=== PATIENT | female | born 1945 | race Caucasian/White ===

== ENCOUNTER 2017-09-23 18:10 | Emergency (ER) | payer SELFPAY ==
[2017-09-23 20:39] LABS: ALBUMIN 3.4 g/dL (3.4-5.0); ALKALINE PHOSPHATASE 61 U/L (46-116); ALT (SGPT) 19 U/L (10-68); BILIRUBIN - TOTAL 0.25 mg/dL (0.2-1.3); CALC OSMOLALITY 279 mosm/kg (275-300); CHLORIDE - SERUM 101 mmol/L (98-107); CREATININE - SERUM 0.8 mg/dL (0.6-1.3); GLUCOSE 109 mg/dL (74-106); POTASSIUM - SERUM 3.6 mmol/L (3.5-5.1); PROTEIN - SERUM 6.4 g/dL (6.4-8.2); SODIUM 139 mmol/L (136-145); UREA NITROGEN 15 mg/dL (7-18); eGFR NON AFRICAN AMERICAN 75 mL/min (90-120)
== END 2017-09-23 21:15 | disposition home or self-care (01) ==
LOC: D.ER 18:10
PROVIDERS: Nurse Practitioner Family
DX: I10 Essential (primary) hypertension (principal); K21.9 Gastro-esophageal reflux disease without esophagitis

== ENCOUNTER 2018-08-27 21:42 | Inpatient (IN) | payer OTHER, MEDICARE ==
[~2018-08-27] VITALS: Ht 157.5 cm; Wt 62.2 kg
--- NOTE | ~2018-08-27 | HEMODYNAMI ---
PATIENT:FOREST CRAWFORD MEDICAL RECORD: [id number] : 49 LOCATION:[facility] ADMISSION DATE: 08/27/18 Generatedon:08/27/201823:53 Patient name: FOREST CRAWFORD Patient #: [id number] SSN: : 1945 Date of study: 08/27/2018 Page: Of Hemodynamic Procedure Report Patient Data Patient Demographics Procedure consent was obtained First Name: FOREST Gender: Female Last Name: TY : 1945 Patient #: [id number] Age: 73 year(s) Race: Unknown Additional ID: [id number] Contact details Address: [address] [place] [address] State: [place] City: [place] Zip code: [address] Past Medical History Allergies Allergen Reaction Date Comments Reported Other allergy 08/27/2018 SULFA, AMPICILLIN Admission Admission Data Admission Date: 08/27/2018 Admission Time: 21:42 Lab Results Lab Result Date: 08/27/2018 Lab Result Time: 0:00 CBC Name Units Result Min Max Hemoglobin g/dl 12.2 *-(----)-- 13.5 17.5 Procedure Procedure Types Cath Procedure Diagnostic Procedure Sedation Charges Moderate Sedation up to 15 minutes Moderate Sedation up to 30 minutes PCI Procedure AMI/SVG/LUMP INSPECTOR PTCA or Stent AMI-BMS/NIRAV Initial Procedure Description Procedure Date Procedure Date: 08/27/2018 Procedure Start Time: 23:04 Procedure End Time: 23:52 Procedure Staff Name Function Josh Pichardo MD Performing Physician Anne Marie Fulelr RT Monitor Amy Batres RT Scrub Vick Vieira RN Nurse Procedure Data Cath Procedure Fluoroscopy Diagnostic fluoroscopy Total fluoroscopy Time: time: 10.9 min 10.9 min Diagnostic fluoroscopy Total fluoroscopy dose: dose: 1389 mGy 1389 mGy Contrast Material Contrast Material Type Amount (ml) Isovue 300 185 Entry Location Entry Primary Successful Side Size Upsize Upsize Entry Closure Succes sful Closure Location (Fr) 1 (Fr) 2 (Fr) Remarks Device Remarks Femoral Right 6 Fr Exoseal artery Short Estimated blood loss: 10 ml Diagnostic catheters Device Type Used For End Catheter Placement MULTIPACK JL 4.0 5Fr Procedure catheter MULTIPACK 3DRC 5Fr Procedure catheter MULTIPACK Pigtail 5 Fr Procedure catheter DIAGNOSTIC AL1 5Fr Procedure catheter ([id number]) Procedure Complications No complications Procedure Medications Medication Administration Route Dosage Oxygen etCO2 Nasal cannula 2 l/min Heparin Flush Bag added to field 2 bags (1000units/500ml NS) 0.9% NaCl I.V. 100 ml/hr Fentanyl I.V. 50 mcg Versed I.V. 1 mg Heparin Bolus I.V. 6000 units Fentanyl I.V. 50 mcg Versed I.V. 1 mg Nitroglycerin IC/IA I.C. 100 mcg Cardene I.C. 300 mcg Integrilin (Bolus I.V. 5 ml 2mg/ml) Cardene I.C. 300 mcg Nitroglycerin IC/IA I.C. 100 mcg Integrilin (Bolus wasted 5 ml 2mg/ml) Integrilin Drip I.V. drip 9.1 ml/hr (75mg/100ml) Hemodynamics Rest HGB: 12.2 (g/dl) Heart Rate: 68 (bpm) Pressure Samples Time Site Value (mmHg) Purpose Heart Use Rate(bpm) 23:40 LV 112/12,29 Snapshot 78 23:40 LV 114/11,30 Snapshot 79 23:41 AO 119/72(94) Pullback 78 23:41 LV 119/13,32 Pullback 78 Gradients Valve Time Site 1 Site 2 Mean SEP/DFP Peak To Heart Use (mmHg) (sec/min) Peak Rate (mmHg) (bpm) Aortic 23:41 LV AO 8 16 0 78 119/13,32 119/72(94) Calculations Valve P-P Mean Valve Index Valve Source Name Gradient Area Flow (cm2) Aortic 0 8 0 8 Snapshots Pre Cath Intra NCS Post Cath Vital Signs Time Heart Resp SPO2 etCO2 NIBP (mmHg) Rhythm Pain Sedation Rate (ipm) (%) (mmHg) Status Level (bpm) 23:00:39 63 19 96 0 147/102(137) NSR 0 (11) 10(A) , No pain 23:04:55 64 18 94 0 142/88(114) NSR 0 (11) 10(A) , No pain 23:09:07 70 17 96 0 149/100(132) NSR 0 (11) 9(A) , No pain 23:13:21 69 14 96 0 141/89(112) NSR 0 (11) 9(A) , No pain 23:17:29 81 11 95 0 127/85(100) NSR 0 (11) 9(A) , No pain 23:21:35 74 14 96 0 145/100(126) NSR 0 (11) 9(A) , No pain 23:25:47 73 15 97 0 139/94(117) NSR 0 (11) 9(A) , No pain 23:29:59 76 14 96 0 131/85(107) NSR 0 (11) 9(A) , No pain 23:34:11 78 15 96 0 123/77(101) NSR 0 (11) 9(A) , No pain 23:38:21 79 15 98 0 117/74(96) NSR 0 (11) 9(A) , No pain 23:42:26 79 17 96 0 122/82(100) NSR 0 (11) 9(A) , No pain 23:46:34 75 17 96 0 130/83(103) NSR 0 (11) 9(A) , No pain 23:50:46 75 17 95 0 130/82(107) NSR 0 (11) 9(A) , No pain Medications Time Medication Route Dose Verified Delivered Reason Notes Effectiveness by by 23:00:52 Oxygen etCO2 2 Josh Vick Per physician Nasal l/min Marino Vieira RN cannula 23:01:00 Heparin Flush added 2 Josh Vick used for Bag to bags Marino Vieira RN procedure (1000units/500ml field NS) 23:01:07 0.9% NaCl I.V. 100 Josh Vick Per physician ml/hr Marino Vieira RN 23:04:18 Fentanyl I.V. 50 Josh Vick for sedation mcg Marino Vieira RN 23:04:25 Versed I.V. 1 mg Josh Vick for sedation Marino Vieira RN 23:12:19 Heparin Bolus I.V. 6000 Josh Vick for units Marino Vieira RN anticoagulation 23:12:25 Fentanyl I.V. 50 Josh Vick for sedation mcg Pichardo MD Vieira RN 23:12:30 Versed I.V. 1 mg Josh Vick for sedation Marino Vieira RN 23:22:57 Nitroglycerin I.C. 100 Josh Josh for IC/IA mcg Marino Pichardo MD vasodilation 23:26:29 Cardene I.C. 300 Josh Josh for mcg Marino Pichardo MD vasodilation 23:28:40 Integrilin I.V. 5 ml Josh Vick for (Bolus 2mg/ml) Marino Veiira RN anticoagulation 23:29:50 Cardene I.C. 300 Josh Vick for mcg Marino Vieira RN vasodilation 23:37:27 Nitroglycerin I.C. 100 Josh Josh for IC/IA mcg Marino Pichardo MD vasodilation 23:49:08 Integrilin wasted 5 ml Josh Vick for (Bolus 2mg/ml) Marino Vieira RN anticoagulation 23:49:29 Integrilin Drip I.V. 9.1 Josh Vick for (75mg/100ml) drip ml/hr Marino Vieira RN anticoagulation Procedure Log Time Note 22:50:39 Vick Vieira RN sent for patient. Start room use. 22:50:40 Time tracking: Call back (After hours or weekends) 22:50:48 Plan of Care:Hemodynamics will remain stable., Cardiac rhythm will remain stable., Comfort level will be maintained., Respiratory function will remain adequate., Patient/ family verbilizes understanding of procedure., Procedure tolerated without complication., Recovers from procedure without complications.. 22:50:52 H&P Date Dictated: 08/27/2018 ER History on chart.. 22:51:18 Patient allergic to Other allergySULFA, AMPICILLIN 22:51:37 Lab Result : Hemoglobin 12.2 g/dl 22:59:36 Vital chart was started 23:00:52 Oxygen 2 l/min etCO2 Nasal cannula was administered by Vick Vieira RN; Per physician; 23:01:00 Heparin Flush Bag (1000units/500ml NS) 2 bags added to field was administered by Vick Vieira RN; used for procedure; 23:01:07 0.9% NaCl 100 ml/hr I.V. was administered by Vick Vieira RN; Per physician; 23:01:09 Lab results completed and on chart. 23:01:28 Patient received from ED to CCL 1 Alert and oriented. Tansferred to table in Supine position. 23:01:29 Warm blankets applied, and todd hugger turned on for patient comfort. 23:01:31 Correct patient and procedure confirmed by team. 23:01:34 Signed procedure consent form obtained from patient. 23:01:35 ECG and BP/O2 sat monitors applied to patient. 23:01:37 Baseline sample Acquired. 23:01:59 Baseline sample Acquired. 23:02:02 Rhythm: w/ ST elevation 23:02:09 Rhythm: sinus rhythm , w/ ST elevation 23:02:11 Full Disclosure recording started 23:02:17 Family unavailable. 23:02:22 Patient NPO since Midnight. 23:02:26 Is the patient allergic to Iodine/contrast media? No. 23:02:28 Was the patient premedicated? Yes 23:02:29 Is patient on blood thinner?No 23:02:31 Patient diabetic? No. 23:02:41 Snore? Yes 23:02:45 Sleep apnea? No 23:02:51 Patient pain scale 0/10 ?. 23:02:57 IV patent on arrival in left forearm with 0.9% NaCl at KVO. 23:03:06 Right groin area was prepped with chlora-prep and draped in sterile fashion 23:03:07 Alarms reviewed by R. N. 23:03:08 Sharps counted by scrub and verified by R.N. 23:03:09 Physician paged 23:03:10 Physician arrived 23:03:10 --------ALL STOP TIME OUT------ 23:03:11 Final Timeout: patient, procedure, and site verified with staff and physician. All members of the team are in agreement. 23:03:13 Right groin site verified by team. 23:03:17 Physical assessment completed. ASA score P 2 - A patient with mild systemic disease as per Josh Pichardo MD. 23:03:22 Sedation plan: IV Moderate Sedation Medication:Versed, Fentanyl 23:03:26 Use device set Femoral Dx 23:04:04 ACIST Syringe (43685) opened to sterile field. 23:04:04 Bag Decanter (2002S) opened to sterile field. 23:04:05 Medline Cath Pack ([id number]) opened to sterile field. 23:04:05 DIAGNOSTIC WIRE .035 260cm J wire (257961) opened to sterile field. 23:04:10 ACIST Hand Control (35681) opened to sterile field. 23:04:10 ACIST Manifold (51264) opened to sterile field. 23:04:11 DIAGNOSTIC Multipack 5Fr catheter set (PX1031) opened to sterile field. 23:04:11 Tegaderm 4 x 4 (1626W) opened to sterile field. 23:04:12 PERCUTANEOUS ENTRY 19GA needle opened to sterile field. 23:04:18 Fentanyl 50 mcg I.V. was administered by Vick Vieira RN; for sedation; 23:04:25 Versed 1 mg I.V. was administered by Vick Vieira RN; for sedation; 23:04:25 SHEATH Prelude 6Fr 0.035 (TDW-4U-31-035) opened to sterile field. 23:04:26 TUBING High Pressure Extension Tubing (Marino) (MD4591S) opened to sterile field. 23:04:27 INFLATOR Merit BasixCompak (KL8793) opened to sterile field. 23:04:27 BMW 300cm [place] 2 J wire ([id number]) opened to sterile field. 23:04:31 Procedure started. 23:04:47 Local anesthetic to right femoral artery with Lidocaine 2% by Josh Pichardo MD.INITIAL ACCESS ONLY 23:04:57 A 6 Fr Short sheath was inserted into the Right Femoral artery 23:05:01 j wire advanced. 23:05:12 A MULTIPACK JL 4.0 5Fr catheter was advanced over the wire and used for Procedure. 23:05:23 Zero performed for pressure channel P1 23:05:27 Zero performed for pressure channel P1 23:05:30 Zero performed for pressure channel P1 23:05:33 Zero performed for pressure channel P1 23:05:44 Zero performed for pressure channel P1 23:06:58 LCA angiography performed. 23:09:25 Catheter removed. 23:09:40 A MULTIPACK 3DRC 5Fr catheter was advanced over the wire and used for Procedure. 23:09:47 RCA angiography performed. 23:09:53 Catheter removed. 23:10:05 GUIDE 6FR XBLAD 3.5 catheter ([id number]) opened to sterile field. 23:10:12 Proceeding to intervention. 23:10:24 6 Fr xblad 3.5 guide catheter was inserted over the wire 23:12:09 bmw wire advanced. 23:12:19 Heparin Bolus 6000 units I.V. was administered by Vick Vieira RN; for anticoagulation; 23:12:25 Fentanyl 50 mcg I.V. was administered by Vick Vieira RN; for sedation; 23:12:30 Versed 1 mg I.V. was administered by Vick Vieira RN; for sedation; 23:13:56 Wire advanced across lesion. 23:15:23 Inflate balloon Inflation number: 1 A EMERGE OTW 2.5 x 15 balloon ([id number]) was prepped and advanced across the Prox LAD, then inflated to 14 JÚNIOR for 0:13 (min:sec). 23:15:50 Inflation number: 2 The EMERGE OTW 2.5 x 15 balloon ([id number]) was reinflated across the Prox LAD, to 6 JÚNIOR for 0:10 (min:sec). 23:18:43 Balloon removed over the wire. 23:22:18 Place stent Inflation Number: 3 A DEION OTW 2.75 x 22 stent ([id number]) was prepped and advanced across the Prox LAD. The stent was deployed at 16 JÚNIOR for 0:21 (min:sec). 23:22:57 Nitroglycerin IC/IA 100 mcg I.C. was administered by Josh Pichardo MD; for vasodilation; 23:26:29 Cardene 300 mcg I.C. was administered by Josh Pichardo MD; for vasodilation; 23:28:40 Integrilin (Bolus 2mg/ml) 5 ml I.V. was administered by Vick Vieira RN; for anticoagulation; 23:29:50 Cardene 300 mcg I.C. was administered by Vick Vieira RN; for vasodilation; 23:32:42 Stent catheter was removed intact over wire. 23:35:38 Place stent Inflation Number: 4 A DEION OTW 3.0 x 12 stent ([id number]) was prepped and advanced across the Prox LAD. The stent was deployed at 16 JÚNIOR for 0:16 (min:sec). 23:36:11 Inflation number: 5 The stent balloon was then re-inflated across the Prox LAD to 14 JÚNIOR for 0:14 (min:sec). 23:37:27 Nitroglycerin IC/IA 100 mcg I.C. was administered by Josh Pichardo MD; for vasodilation; 23:39:15 Wire removed. 23:39:17 Guide catheter removed. 23:39:58 A MULTIPACK Pigtail 5 Fr catheter was advanced over the wire and used for Procedure. 23:41:15 EF : 40 % 23:41:40 Catheter removed. 23:41:52 A DIAGNOSTIC AL1 5Fr catheter ([id number]) was advanced over the wire and used for Procedure. 23:41:58 RCA angiography performed. 23:43:42 Catheter removed. 23:44:12 Sheath removed intact; hemostasis achieved with Exoseal to the Right Femoral artery. 23:44:15 Procedure ended.(Physican Out) 23:44:38 Fluoroscopy time 10.90 minutes. 23:44:45 Flurop Dose total: 1389 23:44:45 Fluoroscopy dose: 1389 mGy 23:44:51 Contrast amount:Isovue 300 185ml. 23:44:53 Sharps counted by scrub and verified by R.N. 23:44:59 Insertion/operative site no bleeding no hematoma. 23:45:01 Post Procedure Pulses reassessed and unchanged 23:45:06 Post procedure rhythm: sinus rhythm 23:45:10 Estimated blood loss: 10 ml 23:45:25 Post procedure instruction explained to patient.Patient verbalizes understanding. 23:45:41 Procedure type changed to Cath procedure, Diagnostic procedure, Sedation Charges, Moderate Sedation up to 15 minutes, Moderate Sedation up to 30 minutes, PCI procedure, AMI/SVG/LUMP INSPECTOR PTCA or Stent, AMI-BMS/NIRAV Initial 23:45:42 Procedure and supply charges have been captured, reviewed, submitted and are correct. 23:46:06 Procedure Complication : No complications 23:49:08 Integrilin (Bolus 2mg/ml) 5 ml wasted was administered by Vick Vieira RN; for anticoagulation; 23:49:29 Integrilin Drip (75mg/100ml) 9.1 ml/hr I.V. drip was administered by Vick Vieira RN; for anticoagulation; 23:51:29 FEMSTOP Gold ([id number]) opened to sterile field. 23:52:08 Vital chart was stopped 23:52:09 See physician's report for complete and final results. 23:52:11 Report given to CVICU. 23:52:16 Patient transfered to CVICU with Bed. 23:52:18 Procedure ended. 23:52:18 Full Disclosure recording stopped 23:52:26 End room use (Document Last) Intervention Summary Intervention Notes Time ActionType Lesion and Equipment Action# Pressure Duration Attributes Used 23:15:23 Inflate Prox LAD EMERGE OTW 1 14 00:13 balloon 2.5 x 15 balloon ([id number]) 23:15:50 Reinflate Prox LAD EMERGE OTW 2 6 00:10 balloon 2.5 x 15 balloon ([id number]) 23:22:18 Place stent Prox LAD DEION OTW 2.75 3 16 00:21 x 22 stent ([id number]) 23:35:38 Place stent Prox LAD DEION OTW 3.0 4 16 00:16 x 12 stent ([id number]) 23:36:11 Reinflate Prox LAD DEION OTW 3.0 5 14 00:14 stent x 12 stent balloon ([id number]) Device Usage Item Name Manufacture Quantity Catalog Number Hospital Part Current Minimal Lot# / Charge Number Stock Stock Serial# Code ACIST Syringe Acist 1 27655 239268 705579 868191 20 (76608) Medical Systems Inc Bag Decanter Microtek 1 2001S 522226 65334 609825 5 (2001S) Medical Inc. Medline Cath Cardinal 1 [id number] 534014 09103 407634 5 Pack Health ([id number]) DIAGNOSTIC WIRE [place] 1 794689 643796 730506 561285 30 .035 260cm J wire (817555) ACIST Hand Acist 1 14608 424622 238598 617111 5 Control (13704) Medical Systems Inc ACIST Manifold Acist 1 51532 364195 067321 804222 5 (22675) Medical Systems Inc DIAGNOSTIC Cardinal 1 TM3900 012657 57638 645346 30 Multipack 5Fr Health catheter set (BX0001) Tegaderm 4 x 4 3M 1 1626W 012001 841145 917906 5 (1626W) PERCUTANEOUS Cook Medical 1 I30476 428540 580210 5 ENTRY 19GA needle SHEATH Prelude Merit 1 XWM-7D-53-35 675616 1326267 467225 5 6Fr 0.035 Medical (TLD-2M-48-035) TUBING High Merit 1 [id number] 975921 77406 371423 10 Pressure Medical Extension Tubing (Pichardo) (SR3239A) INFLATOR Merit Merit 1 KI3396 855621 148225 124908 15 BasixCompak Medical (SM1338) BMW 300cm [place] 1 [id number] 949567 839142 034953 5 [place] 2 J Vascular wire (2695756Q) MULTIPACK JL Cardinal 1 727621 5 4.0 5Fr Health catheter MULTIPACK 3DRC Cardinal 1 883629 5 5Fr catheter Health GUIDE 6FR XBLAD Cardinal 1 33425156 533299 034109 974095 10 3.5 catheter Health (50377710) EMERGE OTW 2.5 [place] 1 [id number] 317887 918061 450543 5 40509121 x 15 balloon Scientific ([id number]) DEION OTW 2.75 x Medtronic 1 [id number] 350838 8058931 179905 5 [id number] 22 stent ([id number]) DEION OTW 3.0 x Medtronic 1 [id number] 534131 331330 150413 5 [id number] 12 stent ([id number]) MULTIPACK Cardinal 1 976240 5 Pigtail 5 Fr Health catheter DIAGNOSTIC AL1 Cardinal 1 [id number] 265629 427069 995804 15 5Fr catheter Health (005328I) FEMSTOP Gold [facility] [place] 1 L40746 931382 622966 402329 5 (I55036) Signature Audit [place] Stage Time Signature Unsigned Intra-Procedure 08/27/2018 Anne Marie Fuller 11:53:00 PM RT(R) Signatures Monitor : Anne Marie Fuller Signature : RT Date : Time : [facility] [address] [place] [address]
--- NOTE | ~2018-08-27 | MORECARE ---
CASE MANAGEMENT DISCHARGE SUMMARY PATIENT: FOREST CRAWFORD UNIT: [id number] ADM DATE: 08/27/18 AGE: 73 : [birth year] SEX: F ROOM/BED: D[facility] AUTHOR: ABDIFATAH WINSLOW PHYSICIAN: REFERRING PHYSICIAN: LORA JIM M.D. DATE OF SERVICE: 08/30/18 Discharge Plan Patient Name: FOREST CRAWFORD Facility: [facility]:[place] : 1945 Planned Disposition: Home Anticipated Discharge Date: Discharge Date: Expected LOS: Initial Reviewer: [email or web address] Initial Review Date: 08/30/2018 Generated: 08/30/18 4:06 pm Comments DCP- Discharge Planning Updated by [email or web address]: Clara Rick on 08/30/18 1:[address] Patient Name: FOREST CRAWFORD Admission Status: ER Accout number: [id number] Admission Date: 08-27-2018 : 1945 Admission Diagnosis: Attending: LORA JIM Current LOS: 3 Anticipated DC Date: Planned Disposition: Home Primary Insurance: [facility] Discharge Planning Comments: CM met with patient at bedside after obtaining verbal consent. Patient plans on returning to her home upon discharge. Patient denies any discharge needs at this time. CM will continue to follow and assist as needed with discharge planning / needs. Billiard Table Mechanic: Clara Rick DCPIA - Discharge Planning Initial Assessment Updated by [email or web address]: Clara Rick on 08/30/18 2:51 pm * Is the patient Alert and Oriented? Yes * How many steps to enter\exit or inside your home? * PCP Tono * Pharmacy [facility] * Preadmission Environment Home Alone * ADLs Independent * Equipment None * Verbal permission to speak to the caregivers and representatives has been obtained from the patient. N/A * Community resources currently utilized None * Additional services required to return to the preadmission environment? Yes * Can the patient safely return to the preadmission environment? No * Has this patient been hospitalized within the prior 30 days at any hospital? Yes Last DP export: 08/30/18 1:55 Patient Name: FOREST CRAWFORD Page 88928 at 1507 All edits/amendments must be made on the electronic document DICTATION DATE: 08/30/181505 INSPECTOR ALIGNING: NATE 08/30/181505 RPT#: [id number] DC DATE: STATUS: ADM IN [facility] [address] [place] [address] END OF REPORT
--- NOTE | ~2018-08-27 | MORECARE ---
CASE MANAGEMENT DISCHARGE SUMMARY PATIENT: FOREST CRAWFORD UNIT: [id number] ADM DATE: 08/27/18 AGE: 73 : [birth year] SEX: F [facility] AUTHOR: ABDIFATAH WINSLOW PHYSICIAN: REFERRING PHYSICIAN: LORA JIM M.D. DATE OF SERVICE: 08/30/18 Discharge Plan Patient Name: FOREST CRAWFORD [facility] : 1945 Planned Disposition: Home Anticipated Discharge Date: Discharge Date: Expected LOS: Initial Reviewer: [email or web address] Initial Review Date: 08/30/2018 Generated: 08/30/18 3:55 pm DCPIA - Discharge Planning Initial Assessment Updated by [email or web address]: Clara Rick on 08/30/18 2:51 pm * Is the patient Alert and Oriented? Yes * How many steps to enter\exit or inside your home? * PCP Tono * Pharmacy [facility] * Preadmission Environment Home Alone * ADLs Independent * Equipment None * Verbal permission to speak to the caregivers and representatives has been obtained from the patient. N/A * Community resources currently utilized None * Additional services required to return to the preadmission environment? Yes * Can the patient safely return to the preadmission environment? No * Has this patient been hospitalized within the prior 30 days at any hospital? Yes Patient Name: FOREST CRAWFORD Page 61070 at 1455 All edits/amendments must be made on the electronic document DICTATION DATE: 08/30/181453 WHITE SUGAR SUPERVISOR: NATE 08/30/181453 RPT#: [id number] DC DATE: STATUS: ADM IN [facility] [address] [place] [address] END OF REPORT
--- NOTE | ~2018-08-27 | MORECARE ---
CASE MANAGEMENT DISCHARGE SUMMARY PATIENT: FOREST CRAWFORD UNIT: [id number] ADM DATE: 08/27/18 AGE: 73 : [birth year] SEX: F ROOM/BED: D[facility] AUTHOR: ABDIFATAH WINSLOW PHYSICIAN: REFERRING PHYSICIAN: LORA JIM M.D. DATE OF SERVICE: 08/31/18 Discharge Plan Patient Name: FOREST CRAWFORD Facility: [facility]:[place] : 1945 Planned Disposition: Home Anticipated Discharge Date: Discharge Date: 08/31/2018 Expected LOS: Initial Reviewer: [email or web address] Initial Review Date: 08/30/2018 Generated: 08/31/18 4:11 pm Comments DCP- Discharge Planning Updated by [email or web address]: Clara Rick on 08/30/18 1:[address] Patient Name: FOREST CRAWFORD Admission Status: ER Accout number: [id number] Admission Date: 08-27-2018 : 1945 Admission Diagnosis: Attending: LORA JIM Current LOS: 3 Anticipated DC Date: Planned Disposition: Home Primary Insurance: [facility] Discharge Planning Comments: CM met with patient at bedside after obtaining verbal consent. Patient plans on returning to her home upon discharge. Patient denies any discharge needs at this time. CM will continue to follow and assist as needed with discharge planning / needs. Telephone Interviewer: Clara Rick DCPIA - Discharge Planning Initial Assessment Updated by [email or web address]: Clara Rick on 08/30/18 2:51 pm * Is the patient Alert and Oriented? Yes * How many steps to enter\exit or inside your home? * PCP Tono * Pharmacy [facility] * Preadmission Environment Home Alone * ADLs Independent * Equipment None * Verbal permission to speak to the caregivers and representatives has been obtained from the patient. N/A * Community resources currently utilized None * Additional services required to return to the preadmission environment? Yes * Can the patient safely return to the preadmission environment? No * Has this patient been hospitalized within the prior 30 days at any hospital? Yes Last DP export: 08/30/18 2:07 Patient Name: FOREST CRAWFORD Page 49168 at 1511 All edits/amendments must be made on the electronic document DICTATION DATE: 08/31/181509 TRENCH PIPE LAYER: NATE 08/31/181509 RPT#: [id number] DC DATE:08/31/18 STATUS: DIS IN [facility] [address] [facility] [place] [address] END OF REPORT
[2018-08-27] MEDS ORDERED: MOBIC7.5 MG PO (21:52)
[2018-08-27] MEDS ORDERED: BENICAR5 MG (21:53)
[2018-08-27] MEDS ORDERED: OMEPRAZOLE40 MG PO (21:53)
[2018-08-27 22:10] VITALS: BP 175/111
[2018-08-27 22:14] LABS: BASOPHILS 0.2 % (0-2); EOSINOPHILS 0.9 % (0-7); HEMATOCRIT 36.3 % (36.0-48.0); HEMOGLOBIN 12.2 g/dL (12-16); IMMATURE GRANULOCYTES 0.2 % (0-5); LYMPHOCYTES 14.5 % (15-50); MCH 28.7 pg (26.0-34.0); MCHC 33.6 g/dL (31.0-37.0); MCV 85.4 fL (80.0-100.0); MEAN PLATELET VOLUME 11.1 fL (7.4-10.4); MONOCYTES 8.8 % (2-11); NEUTROPHILS 75.4 % (40-80); PLATELET COUNT 200 10x3/uL (130-400); RBC 4.25 10x6/uL (4.00-5.40); WBC 9.3 10x3/uL (4.8-10.8)
[2018-08-27 22:21] VITALS: BP 166/90
[2018-08-27 22:29] LABS: APTT 27.6 SECONDS (22.8-39.4); INR 0.95 (0.85-1.17); PROTIME 12.3 SECONDS (11.6-15.0)
[2018-08-27 22:30] VITALS: BP 134/92
[2018-08-27 22:58] LABS: ALBUMIN 3.7 g/dL (3.4-5.0); ALKALINE PHOSPHATASE 64 U/L (46-116); ALT (SGPT) 32 U/L (10-68); AMYLASE - SERUM 58 U/L (25-115); BILIRUBIN - TOTAL 0.31 mg/dL (0.2-1.3); CALC OSMOLALITY 274 mosm/kg (275-300); CALCIUM 9.2 mg/dL (8.5-10.1); CHLORIDE - SERUM 99 mmol/L (98-107); CKMB 45.4 U/L (0.0-3.6); CREATINE KINASE 682 UL (21-215); CREATININE - SERUM 0.9 mg/dL (0.6-1.3); GLUCOSE 131 mg/dL (74-106); LIPASE 233 U/L (73-393); PRO BNP 6689 pg/mL (0-125); PROTEIN - SERUM 7.1 g/dL (6.4-8.2); SODIUM 137 mmol/L (136-145); UREA NITROGEN 11 mg/dL (7-18); eGFR NON AFRICAN AMERICAN 65 mL/min (90-120)
[2018-08-27 23:08] LABS: POTASSIUM - SERUM 2.9 mmol/L (3.5-5.1)
[2018-08-27 23:09] LABS: TROPONIN-I 12.209 ng/mL (0.000-0.060)
[2018-08-28] VITALS (37 sets, daily range): BP systolic 85–117; BP diastolic 49–78; Ht 157.5 cm; Wt 62.2 kg
[2018-08-28 06:47] LABS: BASOPHILS 0.1 % (0-2); EOSINOPHILS 0.8 % (0-7); HEMATOCRIT 31.2 % (36.0-48.0); HEMOGLOBIN 10.2 g/dL (12-16); IMMATURE GRANULOCYTES 0.3 % (0-5); LYMPHOCYTES 17.9 % (15-50); MCH 28.1 pg (26.0-34.0); MCHC 32.7 g/dL (31.0-37.0); MEAN PLATELET VOLUME 10.3 fL (7.4-10.4); MONOCYTES 10.3 % (2-11); NEUTROPHILS 70.6 % (40-80); PLATELET COUNT 170 10x3/uL (130-400); RBC 3.63 10x6/uL (4.00-5.40); RDW 14.1 % (11.5-14.5); WBC 7.8 10x3/uL (4.8-10.8)
[2018-08-28 07:10] LABS: CALC OSMOLALITY 270 mosm/kg (275-300); CALCIUM 8.1 mg/dL (8.5-10.1); CARBON DIOXIDE 24.3 mmol/L (21.0-32.0); CHLORIDE - SERUM 102 mmol/L (98-107); CREATININE - SERUM 0.7 mg/dL (0.6-1.3); GLUCOSE 107 mg/dL (74-106); POTASSIUM - SERUM 4.7 mmol/L (3.5-5.1); SODIUM 136 mmol/L (136-145); UREA NITROGEN 9 mg/dL (7-18); eGFR NON AFRICAN AMERICAN 87 mL/min (90-120)
[2018-08-28 07:53] LABS: APPEARANCE CLEAR (CLEAR); BACTERIA FEW /hpf (NONE SEEN); BILIRUBIN NEGATIVE (NEGATIVE); COLOR YELLOW (YELLOW); EPITHELIAL CELLS OCC /hpf (0-5); GLUCOSE NEGATIVE (NEGATIVE); KETONE NEGATIVE (NEGATIVE); MUCUS <1+ /lpf (NONE SEEN); NITRITE NEGATIVE (NEGATIVE); PROTEIN TRACE mg/dL (NEGATIVE); RED CELLS - URINE 0-5 /hpf (0-5); UROBILINOGEN NORMAL (NORMAL); WHITE CELLS - URINE OCC /hpf (0-5)
[2018-08-28] MEDS ORDERED: OMEPRAZOLE40 MG PO (09:10)
[2018-08-28] MEDS ORDERED: MOBIC7.5 MG PO (09:10)
[2018-08-29] VITALS (24 sets, daily range): BP systolic 97–120; BP diastolic 44–81
[2018-08-29 04:54] LABS: CALC OSMOLALITY 277 mosm/kg (275-300); CALCIUM 8.5 mg/dL (8.5-10.1); CARBON DIOXIDE 27.2 mmol/L (21.0-32.0); CHLORIDE - SERUM 103 mmol/L (98-107); CREATININE - SERUM 0.7 mg/dL (0.6-1.3); GLUCOSE 114 mg/dL (74-106); SODIUM 139 mmol/L (136-145); UREA NITROGEN 9 mg/dL (7-18); eGFR NON AFRICAN AMERICAN 87 mL/min (90-120)
[2018-08-29 04:58] LABS: BASOPHILS 0 % (0-2); EOSINOPHILS 1.1 % (0-7); HEMATOCRIT 28.5 % (36.0-48.0); HEMOGLOBIN 9.3 g/dL (12-16); IMMATURE GRANULOCYTES 0.3 % (0-5); LYMPHOCYTES 15.8 % (15-50); MCH 28.3 pg (26.0-34.0); MCHC 32.6 g/dL (31.0-37.0); MCV 86.6 fL (80.0-100.0); MEAN PLATELET VOLUME 11.5 fL (7.4-10.4); MONOCYTES 11.5 % (2-11); NEUTROPHILS 71.3 % (40-80); PLATELET COUNT 172 10x3/uL (130-400); RBC 3.29 10x6/uL (4.00-5.40); RDW 14.5 % (11.5-14.5); WBC 6.4 10x3/uL (4.8-10.8)
[2018-08-29 04:59] LABS: POTASSIUM - SERUM 3.8 mmol/L (3.5-5.1)
[2018-08-30] VITALS (20 sets, daily range): BP systolic 90–125; BP diastolic 53–88
[2018-08-30 04:50] LABS: CALC OSMOLALITY 278 mosm/kg (275-300); CALCIUM 8.4 mg/dL (8.5-10.1); CARBON DIOXIDE 27.5 mmol/L (21.0-32.0); CHLORIDE - SERUM 106 mmol/L (98-107); CREATININE - SERUM 0.7 mg/dL (0.6-1.3); GLUCOSE 110 mg/dL (74-106); POTASSIUM - SERUM 4.1 mmol/L (3.5-5.1); SODIUM 140 mmol/L (136-145); UREA NITROGEN 10 mg/dL (7-18); eGFR NON AFRICAN AMERICAN 87 mL/min (90-120)
[2018-08-30 05:19] LABS: BASOPHILS 0.2 % (0-2); EOSINOPHILS 2.1 % (0-7); HEMATOCRIT 29.9 % (36.0-48.0); HEMOGLOBIN 9.9 g/dL (12-16); IMMATURE GRANULOCYTES 0.3 % (0-5); LYMPHOCYTES 24.6 % (15-50); MCH 28.9 pg (26.0-34.0); MCHC 33.1 g/dL (31.0-37.0); MCV 87.4 fL (80.0-100.0); MEAN PLATELET VOLUME 11.8 fL (7.4-10.4); MONOCYTES 12.9 % (2-11); NEUTROPHILS 59.9 % (40-80); PLATELET COUNT 169 10x3/uL (130-400); RBC 3.42 10x6/uL (4.00-5.40); RDW 14.6 % (11.5-14.5); WBC 5.7 10x3/uL (4.8-10.8)
[2018-08-31] VITALS (9 sets, daily range): BP systolic 100–137; BP diastolic 57–83
[2018-08-31] MEDS ORDERED: PLAVIX75 MG PO (11:06)
== END 2018-08-31 12:50 | disposition home or self-care (01) | DRG 247 ==
LOC: D.CATH 21:42 → D.ER 21:42 → EDSTATUS 22:49 → D.CVICU 23:58 → D.CLR 23:58 → D.CVICU 08-28 00:02
PROVIDERS: Emergency Medicine; Internal Medicine Cardiovascular Disease
PROC: B2151ZZ Fluoroscopy of Left Heart using Low Osmolar Contrast (ICD-10-PCS; 2018-08-27)
PROC: 4A023N7 Measurement of Cardiac Sampling and Pressure, Left Heart, Percutaneous Approach (ICD-10-PCS; 2018-08-27)
PROC: 027035Z Dilation of Coronary Artery, One Artery with Two Drug-eluting Intraluminal Devices, Percutaneous Approach (ICD-10-PCS; principal; 2018-08-27 23:00)
PROC: B2111ZZ Fluoroscopy of Multiple Coronary Arteries using Low Osmolar Contrast (ICD-10-PCS; 2018-08-27 23:00)
DX: I21.09 ST elevation (STEMI) myocardial infarction involving other coronary artery of anterior wall (principal); I10 Essential (primary) hypertension; D64.9 Anemia, unspecified; R58 Hemorrhage, not elsewhere classified

== ENCOUNTER 2018-09-11 11:44 | Outpatient (CLI) | payer OTHER, MEDICARE ==
[~2018-09-11] VITALS: Ht 157.5 cm; Wt 59.1 kg
--- NOTE | ~2018-09-11 | HEMODYNAMI ---
PATIENT:FOREST CRAWFORD MEDICAL RECORD: [id number] : 49 LOCATION:[facility] ADMISSION DATE: 09/11/18 Generatedon:09/11/201813:55 Patient name: FOREST CRAWFORD Patient #: [id number] SSN: : 1945 Date of study: 09/11/2018 Page: Of Hemodynamic Procedure Report Patient Data Patient Demographics Procedure consent was obtained First Name: FOREST Gender: Female Last Name: TY : 1945 [facility] Initial: PAPI Age: 73 year(s) Patient #: [id number] Race: Unknown Additional ID: [id number] Contact details [address]: [address] [place] [address] State: [place] City: [place] Zip code: [address] Past Medical History Allergies Allergen Reaction Date Comments Reported Other allergy 08/27/2018 SULFA, AMPICILLIN Admission Admission Data Admission Date: 09/11/2018 Admission Time: 11:44 Procedure Procedure Types Cath Procedure PCI Procedure Coronary Stent Coronary Stent Initial Procedure Description Procedure Date Procedure Date: 09/11/2018 Procedure Start Time: 13:28 Procedure End Time: 13:49 Procedure Staff Name Function Ish Loo RT Scrub Antione Hathaway RT Monitor Josh Pichardo MD Performing Physician Parveen Light RN Nurse Procedure Data Cath Procedure Fluoroscopy Diagnostic fluoroscopy Total fluoroscopy Time: 5.1 time: 5.1 min min Diagnostic fluoroscopy Total fluoroscopy dose: 688 dose: 688 mGy mGy Contrast Material Contrast Material Type Amount (ml) Isovue 300 61 Entry Location Entry Primary Successful Side Size Upsize Upsize Entry Closure Succes sful Closure Location (Fr) 1 (Fr) 2 (Fr) Remarks Device Remarks Femoral Left 6 Fr Exoseal artery Short Estimated blood loss: 10 ml Procedure Complications No complications Procedure Medications Medication Administration Route Dosage 0.9% NaCl I.V. 100 ml/hr Oxygen etCO2 Nasal cannula 2 l/min Heparin Flush Bag added to field 2 bags (1000units/500ml NS) Lidocaine 2% added to field 20 Versed I.V. 2 mg Fentanyl I.V. 100 mcg Heparin Bolus I.V. 6000 units Hemodynamics Rest Heart Rate: 96 (bpm) Pressure Samples Time Site Value (mmHg) Purpose Heart Use Rate(bpm) 13:30 AO 152/88(115) Snapshot 69 Snapshots Pre Cath Intra NCS Post Cath Vital Signs Time Heart Resp SPO2 etCO2 NIBP (mmHg) Rhythm Pain Sedation Rate (ipm) (%) (mmHg) Status Level (bpm) 13:16:44 85 14 99 12 145/102(128) NSR 0 (11) 10(A) , No pain 13:20:56 82 16 98 9.7 147/100(131) NSR 0 (11) 10(A) , No pain 13:25:08 78 13 96 0 145/98(126) NSR 0 (11) 10(A) , No pain 13:29:20 80 16 99 15 144/90(114) NSR 0 (11) 10(A) , No pain 13:33:31 80 12 96 15.8 140/95(119) NSR 0 (11) 10(A) , No pain 13:37:41 84 12 99 18 146/98(128) NSR 0 (11) 9(A) , No pain 13:42:51 83 16 98 17.3 173/114(152) NSR 0 (11) 9(A) , No pain 13:47:13 84 16 98 15 171/115(149) NSR 0 (11) 9(A) , No pain Medications Time Medication Route Dose Verified Delivered Reason Notes Effectiveness by by 13:13:46 0.9% NaCl I.V. 100 Parveen Parveen Per physician ml/hr Kuldeep Light RN RN 13:13:56 Oxygen etCO2 2 Parveen Parveen Per physician Nasal l/min Kuldeep Light cannula RN RN 13:14:09 Heparin Flush added 2 Parveen Parveen used for Bag to bags Kuldeep Light procedure (1000units/500ml field GRANADOS RN NS) 13:14:27 Lidocaine 2% added 20ml Parveen Parveen for local to vial Lorigan Pennyigan anesthetic field GRANADOS RN 13:27:37 Versed I.V. 2 mg Parveen Parveen for sedation Kuldeep Light RN RN 13:27:44 Fentanyl I.V. 100 Parveen Parveen for sedation mcg Lorigan Lorigan RN RN 13:32:32 Heparin Bolus I.V. 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 Start room use. 12:59:52 Time tracking: Regular hours (M-F 7:00 - 5:00) 12:59:56 Plan of Care:Hemodynamics will remain stable., Cardiac rhythm will remain stable., Comfort level will be maintained., Respiratory function will remain adequate., Patient/ family verbilizes understanding of procedure., Procedure tolerated without complication., Recovers from procedure without complications.. 13:10:06 Patient received from Pre/Post Procedure Room to CCL 2 Alert and oriented. Tansferred to table in Supine position. 13:10:07 Warm blankets applied, and todd hugger turned on for patient comfort. 13:10:08 Correct patient and procedure confirmed by team. 13:10:09 ECG and BP/O2 sat monitors applied to patient. 13:10:09 Signed procedure consent form obtained from patient. 13:13:46 0.9% NaCl 100 ml/hr I.V. was administered by Parveen Light RN; Per physician; 13:13:56 Oxygen 2 l/min etCO2 Nasal cannula was administered by Parveen Light RN; Per physician; 13:14:09 Heparin Flush Bag (1000units/500ml NS) 2 bags added to field was administered by Parveen Light RN; used for procedure; 13:14:27 Lidocaine 2% 20ml vial added to field was administered by Parveen Light RN; for local anesthetic; 13:15:36 Vital chart was started 13:20:00 Baseline sample Acquired. 13:20:05 Rhythm: sinus rhythm 13:20:06 Full Disclosure recording started 13:20:09 H&P Date Dictated: 09/11/2018 New H&P dictated by physician.. 13:20:10 Pre-op teaching completed and patient verbalized understanding. 13:20:10 Pre-procedure instructions explained to patient. 13:20:12 Family in patients room. 13:20:13 Patient NPO since Midnight. 13:20:14 Is the patient allergic to Iodine/contrast media? No. 13:20:16 Is patient on blood thinner?Yes 13:20:18 ACC The patient was administered the following blood thiners within the last 24 hours: ACCPlavix 13:20:20 Patient diabetic? No. 13:20:28 Previous problem with sedation/anesthesia? No ? 13:20:29 Snore? Yes 13:20:30 Sleep apnea? No 13:20:31 Deviated septum? No 13:20:32 Sticks out tongue? Yes 13:20:32 Opens mouth fully? Yes 13:20:35 Airway obstruction? No ? 13:20:38 Dentures? No ? 13:20:40 Pre procedure: left dorsailis pedis pulse 1+ Palpable, but thready & weak; easily obliterated 13:20:46 Patient pain scale 0/10 ?. 13:20:49 IV patent on arrival in left forearm with 0.9% NaCl at [facility]. 13:20:51 Lab results completed and on chart. 13:20:55 Left groin area was prepped with chlora-prep and draped in sterile fashion 13:20:57 Sharps counted by scrub and verified by R.N. 13:20:57 Alarms reviewed by R. N. 13:20:58 --------ALL STOP TIME OUT------ 13:20:59 Final Timeout: patient, procedure, and site verified with staff and physician. All members of the team are in agreement. 13:21:01 Left groin site verified by team. 13:21:04 Physical assessment completed. ASA score P 2 - A patient with mild systemic disease as per Josh Pichardo MD. 13:21:07 Sedation plan: IV Moderate Sedation Medication:Versed, Fentanyl 13:26:34 Use device set Radial Dx or PCI 13:26:36 Zero performed for pressure channel P1 13:27:12 Use device set PICHARDO PCI 13:27:20 Tegaderm 4 x 4 (1626W) opened to sterile field. 13:27:21 ACIST Manifold (60746) opened to sterile field. 13:27:22 ACIST Hand Control (80082) opened to sterile field. 13:27:23 ACIST Syringe (96648) opened to sterile field. 13:27:24 Medline Cath Pack ([id number]) opened to sterile field. 13:27:29 Bag Decanter (2002S) opened to sterile field. 13:27:37 Versed 2 mg I.V. was administered by Parveen Light RN; for sedation; 13:27:44 Fentanyl 100 mcg I.V. was administered by Parveen Light RN; for sedation; 13:27:59 DIAGNOSTIC WIRE .035 260cm J wire (766987) opened to sterile field. 13:28:03 TUBING High Pressure Extension Tubing (Marino) (OM3082M) opened to sterile field. 13:28:06 BMW 300cm [place] 2 J wire ([id number]) opened to sterile field. 13:28:14 SHEATH Prelude 6Fr 0.035 (OYY-3L-21-035) opened to sterile field. 13:28:16 GUIDE 6FR AR 2.0 catheter (PE6QW34) opened to sterile field. 13:28:18 INFLATOR Merit BasixCompak (ML7216) opened to sterile field. 13:28:23 Procedure started. 13:28:31 Local anesthetic to left femerol artery with Lidocaine 2% by Josh Pichardo MD.INITIAL ACCESS ONLY 13:28:44 A 6 Fr Short sheath was inserted into the Left Femoral artery 13:29:06 6 Fr AR 2 guide catheter was inserted over the wire 13:31:54 BMW wire advanced. 13:32:32 Heparin Bolus 6,000 units I.V. was administered by Parveen Light RN; for anticoagulation; 13:32:47 Wire advanced across lesion. 13:35:17 Place stent Inflation Number: 1 A DEION OTW 3.5 x 38 stent ([id number]) was prepped and advanced across the Mid RCA. The stent was deployed at 14 JÚNIOR for 0:10 (min:sec). 13:36:32 Stent catheter was removed intact over wire. 13:38:34 Place stent Inflation Number: 1 A DEION OTW 3.5 x 26 stent ([id number]) was prepped and advanced across the Prox RCA. The stent was deployed at 16 JÚNIOR for 0:10 (min:sec). 13:39:14 Stent catheter was removed intact over wire. 13:42:37 Place stent Inflation Number: 2 A DEION OTW 3.5 x 15 stent ([id number]) was prepped and advanced across the Prox RCA. The stent was deployed at 18 JÚNIOR for 0:10 (min:sec). 13:43:04 Stent catheter was removed intact over wire. 13:43:05 Wire removed. 13:43:06 Guide catheter removed. 13:43:08 EXOSEAL 6Fr (EX600) opened to sterile field. 13:43:38 Sheath removed intact; hemostasis achieved with Exoseal to the Left Femoral artery. 13:43:44 Procedure ended.(Physican Out) 13:44:25 Fluoroscopy time 05.10 minutes. 13:44:28 Fluoroscopy dose: 688 mGy 13:44:28 Flurop Dose total: 688 13:44:57 Contrast amount:Isovue 300 61ml. 13:45:19 Sharps counted by scrub and verified by R.N. 13:45:21 Insertion/operative site no bleeding no hematoma. 13:45:24 Post-op/insertion site Right Femoral artery dressed using a 4 x 4 and Tegaderm. 13:45:26 Post Procedure Pulses reassessed and unchanged 13:45:29 Post-procedure physical assessment completed. ASA score P 2 - A patient with mild systemic disease as per Josh Pichardo MD. 13:45:50 Post procedure rhythm: unchanged. 13:45:53 Estimated blood loss: 10 ml 13:45:54 Post procedure instruction explained to patient.Patient verbalizes understanding. 13:45:55 Patient needs reinforcement of post procedure teaching. 13:46:02 Procedure and supply charges have been captured, reviewed, submitted and are correct. 13:46:06 Procedure Complication : No complications 13:48:56 Vital chart was stopped 13:48:57 See physician's report for complete and final results. 13:48:58 Report given to Pre/Post Procedure Room. 13:49:44 Patient transfered to Pre/Post Procedure Room with Stretcher. 13:49:46 Full Disclosure recording stopped 13:49:46 Procedure ended. 13:49:51 End room use (Document Last) 13:54:25 FEMSTOP Gold (S03674) opened to sterile field. 13:54:57 Pt began to develop a hematoma. Femstop applied to Left groin at 180. Intervention Summary Intervention Notes Time ActionType Lesion and Equipment Action# Pressure Duration Attributes Used 13:35:17 Place stent Mid RCA DEION OTW 3.5 1 14 00:10 x 38 stent ([id number]) 13:38:34 Place stent Prox RCA DEION OTW 3.5 1 16 00:10 x 26 stent ([id number]) 13:42:37 Place stent Prox RCA DEION OTW 3.5 2 18 00:10 x 15 stent ([id number]) Device Usage Item Name Manufacture Quantity Catalog Hospital Part Current M inimal Lot# / Number Charge Number Stock Stock Serial# Code Tegaderm 4 x 4 3M 1 [id number] [id number] 872932 5 (1626W) ACIST Manifold Acist 1 14814 091981 883615 942915 5 (02624) [employer] Inc ACIST Hand Acist 1 56590 043748 727089 076127 5 Control (71701) [employer] ACIST Syringe Acist 1 64905 270022 946916 974267 2 0 (74120) [employer] Inc Medline Cath Medline 1 [id number] 772766 60983 863987 5 Pack ([id number]) Bag Decanter Microtek 1 2001S 305055 74887 692666 5 () Medical Inc. TUBING High Merit 1 [id number] 736228 05785 753723 1 0 Pressure Medical Extension Tubing (Pichardo) (JD8871J) BMW 300cm [place] 1 [id number] 565495 060012 504839 5 [place] 2 J Vascular wire ([id number]) SHEATH Prelude Merit 1 OWN-2P-99-35 398213 1739782 293452 5 6Fr 0.035 Medical (XPG-6D-75-035) GUIDE 6FR AR Medtronic 1 [id number] 645895 96837 452973 1 2.0 catheter (DO2ZC09) INFLATOR Merit Merit 1 LX6807 678980 797779 361104 1 5 Abimate.ee Medical (KP3879) DEION OTW 3.5 x Medtronic 1 [id number] 730049 5156746 582498 5 [id number] 38 stent ([id number]) DEION OTW 3.5 x Medtronic 1 [id number] 353807 4203323 952378 5 [id number] 26 stent ([id number]) DEION OTW 3.5 x Medtronic 1 [id number] 825049 4217907 488277 5 [id number] 15 stent ([id number]) EXOSEAL 6Fr Cardinal 1 EX600 049431 982151 523243 1 0 (EX600) Health DIAGNOSTIC WIRE [facility] [place] 1 985638 616409 086148 962389 3 0 .035 260cm J wire (595637) FEMSTOP Gold [facility] [place] 1 [id number] 627530 992007 875296 5 ([id number]) Signature Audit [place] Stage Time Signature Unsigned Intra-Procedure 09/11/2018 Antione Hathaway RT(R) 1:50:07 PM RT(R) 09/11/2018 1:54:17 PM Intra-Procedure 09/11/2018 Antione Hathaway 1:55:48 PM RT(R) Signatures Monitor : Antione Hathaway RT Signature : Date : Time : [facility] [address] [place] [address]
[~2018-09-11 11:44] MED LIST: BENICAR5 MG; MOBIC7.5 MG PO; OMEPRAZOLE40 MG PO; PLAVIX75 MG PO
[2018-09-11] MEDS ORDERED: LEVOXYL75 MCG PO (12:09)
[2018-09-11 12:15] VITALS: BP 147/98; BMI 23.8
[2018-09-11 12:27] LABS: BASOPHILS 0.6 % (0-2); EOSINOPHILS 3.8 % (0-7); HEMATOCRIT 35.4 % (36.0-48.0); HEMOGLOBIN 11.5 g/dL (12-16); IMMATURE GRANULOCYTES 0.2 % (0-5); LYMPHOCYTES 22.6 % (15-50); MCH 29.2 pg (26.0-34.0); MCHC 32.5 g/dL (31.0-37.0); MCV 89.8 fL (80.0-100.0); MEAN PLATELET VOLUME 10.9 fL (7.4-10.4); MONOCYTES 6.5 % (2-11); NEUTROPHILS 66.3 % (40-80); RBC 3.94 10x6/uL (4.00-5.40); WBC 4.7 10x3/uL (4.8-10.8)
[2018-09-11 12:32] LABS: CALC OSMOLALITY 282 mosm/kg (275-300); CALCIUM 9.4 mg/dL (8.5-10.1); CARBON DIOXIDE 25.6 mmol/L (21.0-32.0); CHLORIDE - SERUM 106 mmol/L (98-107); CREATININE - SERUM 0.7 mg/dL (0.6-1.3); GLUCOSE 96 mg/dL (74-106); POTASSIUM - SERUM 3.9 mmol/L (3.5-5.1); SODIUM 142 mmol/L (136-145); UREA NITROGEN 13 mg/dL (7-18); eGFR NON AFRICAN AMERICAN 87 mL/min (90-120)
[2018-09-11 12:39] LABS: PLATELET COUNT 275 10x3/uL (130-400)
[2018-09-11 20:27] VITALS: BP 119/77
[2018-09-12] VITALS: BP 111/69
[2018-09-12 01:03] VITALS: Ht 157.5 cm; Wt 59.1 kg
[2018-09-12 05:57] VITALS: BP 121/80
[2018-09-12] MEDS ORDERED: COREG 3.1253.125 MG PO (07:37)
== END 2018-09-12 12:03 | disposition home or self-care (01) ==
LOC: D.CATH 11:44 → D.M2 18:50 → D.CATH 09-12 12:03
PROVIDERS: Internal Medicine Cardiovascular Disease
DX: I25.119 Atherosclerotic heart disease of native coronary artery with unspecified angina pectoris (principal); Z95.5 Presence of coronary angioplasty implant and graft; I10 Essential (primary) hypertension; K21.9 Gastro-esophageal reflux disease without esophagitis; M19.90 Unspecified osteoarthritis, unspecified site; E07.9 Disorder of thyroid, unspecified; Z96.652 Presence of left artificial knee joint; Z88.0 Allergy status to penicillin; Z88.2 Allergy status to sulfonamides; Z79.01 Long term (current) use of anticoagulants; Z79.1 Long term (current) use of non-steroidal anti-inflammatories (NSAID); Z79.899 Other long term (current) drug therapy; Z82.49 Family history of ischemic heart disease and other diseases of the circulatory system; Z01.812 Encounter for preprocedural laboratory examination

== ENCOUNTER → 2019-07-05 12:55 | Outpatient (CLI) | payer MEDICARE, OTHER ==
[~2019-07-05 12:55] MED LIST changes: +COREG 3.1253.125 MG PO; +LEVOXYL75 MCG PO
== END | disposition home or self-care (01) ==
LOC: D.HCCARDIO 12:55
PROVIDERS: ATTEND Internal Medicine Cardiovascular Disease
DX: I10 Essential (primary) hypertension (principal)